=== PATIENT | male | born 1945 ===

== ENCOUNTER → 2023-08-23 11:00 | Outpatient (REF) | payer MEDICARE, SELFPAY ==
[2023-08-23 11:14] LABS: % Basophils 0.4 % (0-2); % Eosinophils 2.1 % (0-6); % Immature Granulocytes 0.4 % (0-0.5); % Lymphocytes 42.6 % (20.5-51.1); % Monocytes 8.1 % (1.7-9.3); % Neutrophils 46.4 % (42.2-75.2); Absolute Eosinophils 0.2 10^3/uL (0-0.7); Absolute Lymphocytes 3.2 10^3/uL (1.2-3.4); Absolute Monocytes 0.6 10^3/uL (0.1-0.6); Absolute Neutrophils 3.5 10^3/uL (1.4-6.5); Hematocrit 32.7 % (39.0-52.0); Hemoglobin 10.9 g/dL (13.0-18.0); Mean Corp Hgb Conc. 33.3 g/dL (33.0-37.0); Mean Corpuscular Hgb 31.8 pg (27.0-31.0); Mean Corpuscular Volume 95.3 fL (80.0-94.0); Mean Platelet Volume 11.2 fL (7.4-10.4); Nucleated Red Blood Cells % 0 % (-); Platelet Count 150 10^3/uL (130-400); Red Blood Cell Count 3.43 10^6/uL (4.70-6.10); Red Cell Dist. Width 16.8 % (11.5-14.5); White Blood Cell Count 7.6 10^3/uL (4.8-10.8)
[2023-08-23 11:27] LABS: ALT (SGPT) 10 U/L (0-50); AST (SGOT) 21 U/L (17-59); Albumin 3.9 g/dl (3.5-5.0); Alkaline Phosphatase 70 U/L (38-126); Blood Urea Nitrogen 23 mg/dl (9-20); Calcium 9.3 mg/dl (8.4-10.2); Carbon Dioxide 29 mmol/L (22-30); Chloride 101 mmol/L (98-107); Glucose 79 mg/dl (70-99); HDL Cholesterol 56 mg/dl; LDL Cholesterol, Calculated 35 mg/dl; Potassium 4.5 mmol/L (3.5-5.1); Sodium 137 mmol/L (135-145); Total Bilirubin 0.5 mg/dl (0.2-1.3); Total Cholesterol 103 mg/dl (50-199); Total Protein 6.9 g/dl (6.3-8.2); Triglyceride 60 mg/dl (10-149); Very Low Density Lipoprotein 12 mg/dl (0-30); eGFR > 60.00
== END ==
LOC: OLABBH 11:00
PROVIDERS: ATTENDING PHYSICIAN Family Medicine
DX: E78.5 Hyperlipidemia, unspecified (principal); I10 Essential (primary) hypertension
CPT/HCPCS: 36415; 80053; 80061; 85025

== ENCOUNTER 2023-09-08 02:11 | Emergency (ER) | payer MEDICARE, SELFPAY ==
[2023-09-08] VITALS (11 sets, daily range): BP systolic 97–154; BP diastolic 52–102
--- NOTE | 2023-09-08 02:47 | ED.GENMED ---
History of Present Illness
<REMINGTON Cerda - Last Filed: 09/08/23 04:44>
General
Chief Complaint: Fall
Source: patient and longterm
Exam Limitations: dementia
Time Seen by Provider: 09/08/23 02:24
Nursing documentation reviewed up to this point in time: agreed with
Travel History
Have you had any contact with someone who has COVID-19?: Unable to Answer
Do you have any symptoms of coronavirus? Fever > 100 degrees, chills, cough, shortness of breath, sore throat, loss of taste or smell, muscle aches, or headache?: Unable to Answer
History of Present Illness
History of Present Illness:
This is a 78 year old male with a PMH of Afib, CHF, HTN, DM, and dementia, presenting [facility] ED [facility] with 2 unwitnessed falls today. Per EMS, pt fell once earlier today and his daughter was contacted but did not want
him taken to the ER. Pt was found again in the bathroom this evening. It is unknown if patient hit his head or lost consciousness. Pt complains of right arm pain here.
Past History
<REMINGTON Cerda - Last Filed: 09/08/23 04:44>
Past History
ED Past Medical History: Arrthythmia, CHF, HTN and Other (dementia)
Patient has exhibited threatening behavior?: No
Review of Systems
<REMINGTON Cerda - Last Filed: 09/08/23 04:44>
Review of Systems
Allergies reviewed?: Yes
Unable to obtain full review of systems at this time due to: dementia
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
All Other Systems: ROS reviewed and negative except as documented in HPI and ROS
Phy Exam
<REMINGTON Cerda - Last Filed: 09/08/23 04:44>
General Physical Exam
General Presentation: no apparent distress
General age: appears stated age
General Skin: warm and dry
General Habitus: elderly
General Mental: other (somnolent)
General Hydration: dry mucous membranes
General Chronic Disability: demented
ENT Exam
ENT Exam: normocephalic
Additional ENT: pupils equal
Cardiovascular Exam
Cardiovascular Exam: regular rate/rhythm, no edema and no murmur
Heart Sounds: normal
Pulmonary Exam
Pulmonary Exam: lungs clear, no respiratory distress, no rales, no crackles, no rhonchi and no wheezing
Oxygen Status: room air
Gastrointestinal Exam
Gastrointestinal Exam: normal bowel sounds, non tender, soft and non distended
Neurological Exam
Neurological Exam: other (oriented to self, somnolent, arouses and responds to stimulation and name, able to answer questions regarding pain)
Musculoskeletal Exam
Musculoskeletal Exam: no edema and other (limited passive ROM of right arm, pain upon passive ROM)
Skin Exam
Skin Exam: normal color, warm/dry and other (no ecchymoses noted)
Course
<REMINGTON Cerda - Last Filed: 09/08/23 04:44>
Orders/Labs/Results
Orders:
Orders
09/08/23 02:52
CT Head W/o Iv Contrast Urgent
Comment:
Reason For Exam: fall
Humerus, Right 2 Views [CR Humerus - Right Min 2 View*] Urgent
Comment:
Reason For Exam: fall
Vital Signs
Initial and Last Documented VS:
Initial Vital Signs
Temp Pulse Resp BP Pulse Ox
98.3 F 83 20 126/59 99
09/08/23 02:17 09/08/23 02:17 09/08/23 02:17 09/08/23 02:17 09/08/23 02:17
Last Documented Vital Signs
Temp Pulse Resp BP Pulse Ox
98.3 F 73 15 132/67 95
09/08/23 02:17 09/08/23 04:30 09/08/23 04:30 09/08/23 04:00 09/08/23 04:30
<Catarino Granado DO - Last Filed: 09/08/23 04:40>
Orders/Labs/Results
Orders:
Orders
09/08/23 02:52
CT Head W/o Iv Contrast Urgent
Comment:
Reason For Exam: fall
Humerus, Right 2 Views [CR Humerus - Right Min 2 View*] Urgent
Comment:
Reason For Exam: fall
Vital Signs
Initial and Last Documented VS:
Initial Vital Signs
Temp Pulse Resp BP Pulse Ox
98.3 F 83 20 126/59 99
09/08/23 02:17 09/08/23 02:17 09/08/23 02:17 09/08/23 02:17 09/08/23 02:17
Last Documented Vital Signs
Temp Pulse Resp BP Pulse Ox
98.3 F 73 15 132/67 95
09/08/23 02:17 09/08/23 04:30 09/08/23 04:30 09/08/23 04:00 09/08/23 04:30
<Catarino Granado DO - Last Filed: 09/08/23 04:40>
MDM/Problems Addressed
MDM/Problems Addressed:
Dementia, fall
<Catarino Granado DO - Last Filed: 09/08/23 04:40>
*Radiology
Radiology exam reviewed: preliminary read by ED provider (No intracranial hemorrhage)
*Pulse Oximetry
Patient hypoxic: no
*Critical Care Note
Total Time (30-74mins, 75-104mins- exclusive of procedures): Not Applicable
Data Reviewed
Source: patient
Further Testing Considered But Not Given:
Consider C-spine imaging but no focal bony tenderness and normal range of motion
ED Attending Note
<REMINGTON Cerda - Last Filed: 09/08/23 04:44>
-
Portions of this chart may have been created with voice recognition software.� Occasional wrong word or��sound alike� substitutions may have occurred due to the inherent limitations of voice recognition software.
<Catarino Granado DO - Last Filed: 09/08/23 04:40>
ED Attending Note
Patient seen and examined by attending physician: Yes
I performed a history and physical exam of patient and discussed management with resident, I reviewed resident's note and agree with documented findings and plan of care.: Yes
ED Attending Note:
78-year-old male with 2 falls at longterm. Patient with history of dementia and on my evaluation offers no complaints. Patient sleeping. See above history. Exam: No outward signs of head trauma. No focal bony tenderness. Normal range of
motion of bilateral knees and bilateral hips. Assessment and plan: Check right humeral film and head CT.
Discharge Plan
Departure
Patient Disposition: Home (Routine Discharge)
Date of Disposition: 09/08/23
Time of Disposition: 04:40
Patient with high blood pressure during this ER visit?: No
Condition: Good
Discharge Problem:
Fall
Instructions: Preventing falls in adults
Referrals:
Manny Angela MD [Family Provider] -
Activity Restrictions/Additional Instructions:
Return to emergency department if patient develops changes in mental status, nausea, vomiting, difficulty breathing, loss of consciousness, seizures, or any new or worsening symptoms.
Interventions
Interventions:
*Risk Screen - Suicide Last Done: 09/08/23 02:17
*General Assessment Last Done: 09/08/23 02:17
*Neglect/Abuse Screening Last Done: 09/08/23 02:17
ED-Musculoskeletal Assessment Last Done: 09/08/23 02:14
ED- Neurological Assessment Last Done: 09/08/23 02:14
ED-Skin Assessment Last Done: 09/08/23 02:14
--- NOTE | 2023-09-08 07:21 | EDRN ---
the pt was received from previous dry transfer worker RN, the pt is resting in stretcher in the lowest position, side rails up x2, call claros within reach, HOB slightly elevated, VS WNL, no s/s of distress, awaiting for transport to take the pt back to
[facility], will continue to monitor the pt closely
--- NOTE | 2023-09-08 07:34 | EDRN ---
the pt pressed the call claros and this RN entered the pts room, the pt stated to this RN that he needed to have a bowel movement, this RN assisted the pt out of the stretcher and the pt was able to ambulate x1 assist to the bathroom, the pt had a
small sized bowel movement, the pt was able to ambulate back to the stretcher with no issues, this RN assisted the pt with dressing into his clothes per the pts request, the pt is now resting in stretcher in the lowest position, side rails up x2,
call claros within reach, HOB slightly elevated, no s/s of distress, no c/o pain, VS WNL, will continue to monitor the pt closely
--- NOTE | 2023-09-08 10:12 | EDRN ---
the pt pressed the call claros and this RN entered the pts room, the pt stated that he needed to use the bathroom, the pt was able to ambulate x1 assist, the pt urinated and was then able to ambulate back to stretcher, the pt is resting in stretcher
in the lowest position, side rails up x2, call claros within reach, HOB slightly elevated, the pt stated that he was hungry and wanted a sandwich, this RN provided the pt with an ER lunch box, will continue to monitor the pt closely
--- NOTE | 2023-09-08 12:24 | EDRN ---
the pt is resting in stretcher in the lowest position, side rails up x2, call claros within reach, HOB elevated, VS WNL, no s/s of distress, no c/o pain, the pt is watching TV, the pt denies needing anything at this time, the pt has been re oriented
to time and place, will continue to monitor the pt closely
--- NOTE | 2023-09-08 13:11 | EDRN ---
this RN called [facility] at [phone] and the community health specialist there stated that they were unable to put the nursing supervisor display fabrication on the phone to speak with this RN in order to give verbal report, so this RN notified the community health specialist that
the pt was going to be sent back to [facility] by [facility]
== END 2023-09-08 13:59 | disposition home or self-care (01) ==
LOC: EMR 02:11
PROVIDERS: EMERGENCY PHYSICIAN Emergency Medicine; FAMILY PHYSICIAN Family Medicine
DX: M79.601 Pain in right arm (principal); W19.XXXA Unspecified fall, initial encounter; F03.90 Unspecified dementia, unspecified severity, without behavioral disturbance, psychotic disturbance, mood disturbance, and anxiety
CPT/HCPCS: 99284; 70450; 73060